=== PATIENT | female | born 2000 | race Caucasian/White ===

== ENCOUNTER 2020-08-07 19:14 | Outpatient (CLI) | payer MEDICAID, SELFPAY ==
[2020-08-07 19:00] VITALS: BMI 26.9
[2020-08-07 19:49] VITALS: RESP 18; TEMP 36.5
[2020-08-07 21:09] LABS: Bilirubin Urine Neg (Negative); Blood Urine Neg (Negative); Glucose Urine UA Norm (Normal); Ketones Urine Negative (Negative); Leukocyte Esterase Urine Negative (Negative); Nitrate Urine Negative (Negative); Protein Urine Neg (Negative); Urine Appearance Clear (CLEAR); Urine Color Yellow (Yellow); Urobilinogen Urine Norm (Negative); pH Urine 7 (5-7)
[2020-08-07 21:12] LABS: Add Urine Culture? No; Bacteria Urine 1+ /hpf; RBC Urine 25-40 /hpf (0-2); Squamous Epithelial Cell Urine 0-4 /hpf (0-5); Transitional Epi Cells Urine 0-4 /hpf
[2020-08-07] MEDS: HYDROcodone-acetaminophen 5-325 mg Tablet 1 TAB PO (21:34)
[2020-08-07 22:19] VITALS: PULSE 80; RESP 18; TEMP 36.5
== END 2020-08-07 22:30 | disposition home or self-care (01) ==
LOC: OBGYN 22:19 → OPOB 08-08 11:53 → OBGYN 08-08 11:55
PROVIDERS: Visit Provider Obstetrics & Gynecology
DX: O99.891 Other specified diseases and conditions complicating pregnancy (principal); R10.9 Unspecified abdominal pain
CPT/HCPCS: 81001; 87086; 99211

== ENCOUNTER → 2021-01-26 09:58 | Outpatient (BNVA) | payer MEDICAID, SELFPAY | PROVIDERS: Visit Provider Orthopaedic Surgery | DX: M25.512 Pain in left shoulder (principal) | CPT/HCPCS: 73030 ==

== ENCOUNTER → 2024-10-06 12:30 | Outpatient (BNVA) | payer BC, SELFPAY | PROVIDERS: Visit Provider Registered Nurse Neonatal Intensive Care | DX: R05.9 Cough, unspecified (principal); J10.1 Influenza due to other identified influenza virus with other respiratory manifestations | CPT/HCPCS: 87400 ==